=== PATIENT | female | born 1975 | race African-American/Black ===

== ENCOUNTER 2016-10-18 13:23 | Outpatient (CLI) ==
[2016-09-09 09:57] VITALS: BMI 40.7
[2016-10-18 15:30] LABS: BASOPHILS # (AUTO) 0.1 K/uL (0-0.2); BASOPHILS % (AUTO) 0.8 % (0.0-3.0); EOSINOPHILS # (AUTO) 0.2 K/ul (0.0-0.7); EOSINOPHILS % (AUTO) 2.4 % (0.0-7.0); HEMATOCRIT 40.1 % (37.0-47.0); HEMOGLOBIN 12.5 g/dl (12.0-16.0); IMMATURE GRANULOCYTE % (AUTO) 0.3 % (0.0-5.0); LYMPHOCYTES # (AUTO) 2.8 K/uL (0.60-3.4); LYMPHOCYTES % (AUTO) 37.3 (10.0-50.0); MEAN CORPUSCULAR HEMOGLOBIN 25.4 pg (27.0-31.0); MEAN CORPUSCULAR HGB CONC 31.2 (31.8-35.4); MEAN CORPUSCULAR VOLUME 81.5 fl (81.0-99.0); MONOCYTES # (AUTO) 0.6 K/uL (0.4-2.0); MONOCYTES % (AUTO) 7.7 (0-10); NEUTROPHILS # (AUTO) 3.9 K/ul (2.0-6.9); NEUTROPHILS % (AUTO) 51.5; PLATELET COUNT 346 10^3/uL (140-440); RED BLOOD COUNT 4.92 10^6/ul (4.20-5.40); WHITE BLOOD COUNT 7.57 K/ul (4.6-10.2)
[2016-10-18 15:52] LABS: ALBUMIN 3.5 g/dL (3.4-5.0); ALBUMIN/GLOBULIN RATIO 0.97; BILIRUBIN,TOTAL 0.33 mg/dL (0.00-1.20); BUN/CREATININE RATIO 8.33; CALCIUM 9.4 mg/dL (8.2-10.2); CHOL/HDL RATIO 3.2 (4.5-5.5); CREATININE 0.84 mg/dL (0.60-1.30); TOTAL PROTEIN 7.1 g/dL (6.4-8.2)
== END 2016-10-18 13:24 | disposition home or self-care (01) ==
LOC: LAB 13:23
PROVIDERS: ATTEND Nurse Practitioner Family
DX: E78.5 Hyperlipidemia, unspecified (principal); I10 Essential (primary) hypertension
CPT/HCPCS: 36415; 80053; 80061; 85025

== ENCOUNTER 2017-01-17 14:40 | Outpatient (CLI) | payer OTHER ==
[2016-09-09 09:57] VITALS: BMI 40.7
[2017-01-17 14:49] LABS: BASOPHILS # (AUTO) 0.1 K/uL (0-0.2); BASOPHILS % (AUTO) 0.7 % (0.0-3.0); EOSINOPHILS # (AUTO) 0.2 K/ul (0.0-0.7); HEMATOCRIT 38.7 % (37.0-47.0); HEMOGLOBIN 12.5 g/dl (12.0-16.0); IMMATURE GRANULOCYTE % (AUTO) 0.1 % (0.0-5.0); LYMPHOCYTES # (AUTO) 2.5 K/uL (0.60-3.4); LYMPHOCYTES % (AUTO) 29.4 (10.0-50.0); MEAN CORPUSCULAR HEMOGLOBIN 25.8 pg (27.0-31.0); MEAN CORPUSCULAR HGB CONC 32.3 (31.8-35.4); MONOCYTES # (AUTO) 0.7 K/uL (0.4-2.0); MONOCYTES % (AUTO) 7.9 (0-10); NEUTROPHILS % (AUTO) 59.9; PLATELET COUNT 368 10^3/uL (140-440); RED BLOOD COUNT 4.84 10^6/ul (4.20-5.40); WHITE BLOOD COUNT 8.43 K/ul (4.6-10.2)
[2017-01-17 15:12] LABS: ALBUMIN 3.6 g/dL (3.4-5.0); ALBUMIN/GLOBULIN RATIO 0.88; BILIRUBIN,TOTAL 0.27 mg/dL (0.00-1.20); BUN/CREATININE RATIO 16.09; CALCIUM 9.6 mg/dL (8.2-10.2); CHOL/HDL RATIO 2.7 (4.5-5.5); CREATININE 0.87 mg/dL (0.60-1.30); TOTAL PROTEIN 7.7 g/dL (6.4-8.2)
== END 2017-01-17 14:41 | disposition home or self-care (01) ==
LOC: LAB 14:40
PROVIDERS: ATTEND Nurse Practitioner Family
DX: E11.9 Type 2 diabetes mellitus without complications (principal); I10 Essential (primary) hypertension; E78.5 Hyperlipidemia, unspecified; Z72.0 Tobacco use
CPT/HCPCS: 36415; 80053; 80061; 83036; 85025

== ENCOUNTER 2017-01-20 09:44 | Outpatient (CLI) | payer OTHER ==
[2016-09-09 09:57] VITALS: BMI 40.7
--- NOTE | 2017-01-20 13:17 | CT ---
EXAM: CT Abdomen without contrast. CT Pelvis without contrast. HISTORY: Mid abdominal pain. Abdominal distension. Diarrhea. COMPARISON: 08/19/2016. TECHNIQUE: Multiple axial images of the abdomen and pelvis were obtained without intravenous contra st. Images were reformatted in the coronal plane. FINDINGS: Please note that evaluation of the abdominal and pelvic structures is limited due to lack of intravenous contrast. No acute abnormality identified in the lung bases. Degenerative changes present in the spine and sa croiliac joint. The liver, gallbladder, pancreas, spleen, adrenal glands, and kidneys demonstrate normal contour. The bowel is normal in course and caliber without evidence for obstruction or inflammatory process. The appendix is normal. Uterus demonstrates normal contour. Urinary bladder is unremarkable. No free fluid or free air identified. IMPRESSION: No acute abnormality of the abdomen or pelvis.
== END 2017-01-20 09:45 | disposition home or self-care (01) ==
LOC: RAD 09:44
PROVIDERS: ATTEND Nurse Practitioner Family
DX: R10.84 Generalized abdominal pain (principal); R10.817 Generalized abdominal tenderness; R19.7 Diarrhea, unspecified

== ENCOUNTER 2017-02-20 12:52 | Outpatient (CLI) | payer OTHER ==
[2016-09-09 09:57] VITALS: BMI 40.7
--- NOTE | 2017-02-21 09:22 | MAMMO ---
EXAM: Bilateral digital screening mammogram History: Baseline screening Findings: MLO and CC views of bilateral breasts demonstrate predominately fatty replaced breast par enchyma. There is a 1.5 cm well circumscribed nodule at 9 o'clock within the right breast posterior depth. No suspicious microcalcifications. Impression: Indeterminate 9 o'clock right breast nodule. Recommend further evaluation with spot co mpression views and ultrasound. BIRADS 0
== END 2017-02-20 12:53 | disposition home or self-care (01) ==
LOC: RAD 12:52
PROVIDERS: ATTEND Nurse Practitioner Family
DX: Z12.31 Encounter for screening mammogram for malignant neoplasm of breast (principal)

== ENCOUNTER 2017-02-24 08:37 | Outpatient (CLI) ==
[2016-09-09 09:57] VITALS: BMI 40.7
--- NOTE | 2017-02-24 09:22 | MAMMO ---
EXAM: Right diagnostic mammogram History: Right breast mass. Comparison: Bilateral mammogram 02/20/2017 Findings: Right breast density is fatty. Additional views of the right breast confirm the 9 o'clock right breast mass. No suspicious microcalcifications. Impression: Indeterminate 9 o'clock right breast mass. Recommend further evaluation with ultrasoun d. BIRADS 0
--- NOTE | 2017-02-24 09:46 | US ---
EXAM: Right breast ultrasound. History: Right breast mass. Comparison: Right-sided mammogram 02/24/2017 Technique: Multiple sonographic images through the right breast were obtained. Color duplex Dopple r was used to interrogate vascular flow. Findings: No masses, cysts or fluid collections identified. Impression: Although no sonographic abnormalities are identified, recommend 6-month follow-up right mammogram to document stability of the probably benign mammographic breast nodule. BIRADS 3
== END 2017-02-24 08:38 | disposition home or self-care (01) ==
LOC: RAD 08:37
PROVIDERS: ATTEND Nurse Practitioner Family
DX: N63 Unspecified lump in breast (principal)

== ENCOUNTER 2017-04-21 12:37 | Outpatient (CLI) ==
[2016-09-09 09:57] VITALS: BMI 40.7
[2017-04-21 13:04] LABS: ALBUMIN 3.4 g/dL (3.4-5.0); ALBUMIN/GLOBULIN RATIO 0.89; ANION GAP 14.9; BILIRUBIN,TOTAL 0.47 mg/dL (0.00-1.20); POTASSIUM 3.9 mmol/L (3.5-5.10); TOTAL PROTEIN 7.2 g/dL (6.4-8.2)
[2017-04-21 13:05] LABS: BUN/CREATININE RATIO 10.11; CHOL/HDL RATIO 2.8 (4.5-5.5); CREATININE 0.89 mg/dL (0.60-1.30)
== END 2017-04-21 12:38 | disposition home or self-care (01) ==
LOC: LAB 12:37
PROVIDERS: ATTEND Nurse Practitioner Family
DX: E11.9 Type 2 diabetes mellitus without complications (principal); I10 Essential (primary) hypertension; E78.5 Hyperlipidemia, unspecified
CPT/HCPCS: 36415; 80053; 80061; 83036

== ENCOUNTER 2017-06-27 07:55 | Outpatient (CLI) ==
[2016-09-09 09:57] VITALS: BMI 40.7
--- NOTE | 2017-06-28 06:07 | MRI ---
EXAM: Lumbar spine MRI without contrast. HISTORY: Chronic low back pain. COMPARISON: CT abdomen and pelvis 01/20/2017. TECHNIQUE: Multiplanar, multisequence MR images were acquired of the lumbar spine without contrast FINDINGS: Five non-rib bearing lumbar vertebra are present. There is minor thoracolumbar dextroscol iosis centered at L1-2. The lumbar vertebra are normal in height. Intrinsic bone marrow signal is h eterogeneous and small areas of bright T1 signal fatty infiltration are present along a few of the en dplates. Bridging ventral and lateral osteophytes are present in the lower thoracic and lumbar spine raising the possibility of a noninfectious inflammatory arthritis. Disc desiccation and minor disc space narrowing is present at L3-4 and L4-5. At L5-S1, there is osteophytosis with moderate disc spa ce narrowing, heterogeneous disc signal, endplate irregularity and moderately extensive reactive hiral ow changes along the endplates. Conus medullaris ends at L1-2 and has normal signal intensity. Canal diameter is developmentally narrow. The liver, spleen and kidneys are unremarkable. There are no paravertebral masses. There is osteoar throsis of both sacroiliac joints. T12-L1: The intervertebral disc is normal. L1-2: The intervertebral disc is normal. L2-3: The intervertebral disc is normal. There is mild bilateral hypertrophic facet arthropathy and ligamentum flavum hypertrophy, greater on the right. There is no central canal stenosis or foramina l stenosis. L3-4: There is a mild disc bulge and a small central disc extrusion that minimally effaces the ventr al thecal sac and mild bilateral hypertrophic facet arthropathy and ligamentum flavum hypertrophy. T his causes minor bilateral foraminal stenosis. There is no central canal stenosis. L4-5: There is a minor spondylotic ridge that is asymmetric to the left which effaces the left later al recess and medial left neural foramen. Mild bilateral hypertrophic facet arthropathy and ligament um flavum hypertrophy is present, greater on the left and there is mild left lateral recess stenosis and minor left foraminal stenosis. There is no central canal stenosis. L5-S1: There is a minor diffuse disc osteophyte complex which contacts the anterior S1 nerves bilate rally and may encroach on both L5 nerves exiting the neural foramina. Mild bilateral facet arthropat hy and ligamentum flavum hypertrophy is present. There is mild to moderate left neural foraminal cj nosis. IMPRESSION: 1. Mild lumbar degenerative spondylosis with bridging ventral and lateral osteophytes. The appearan ce raises the possibility of an inflammatory spondyloarthropathy. Clinical considerations include di ffuse idiopathic skeletal hyperostosis and ankylosing spondylitis. 2. Small central disc extrusion L3-4. 3. Bilateral sacroiliac osteoarthrosis. Pelvic MRI could better define the anatomy.
== END 2017-06-27 07:56 | disposition home or self-care (01) ==
LOC: RAD 07:55
PROVIDERS: ATTEND Nurse Practitioner Family
DX: M54.5 Low back pain (principal); G89.29 Other chronic pain; M54.10 Radiculopathy, site unspecified

== ENCOUNTER 2017-07-08 10:36 | Emergency (ER) ==
[2017-07-08 10:42] VITALS: BP 120/80; TEMP 98.1; BMI 38.7
== END 2017-07-08 11:30 | disposition left against medical advice (07) ==
LOC: ED 10:36
DX: H57.9 Unspecified disorder of eye and adnexa (principal); F17.210 Nicotine dependence, cigarettes, uncomplicated

== ENCOUNTER 2017-10-08 13:41 | Outpatient (CLI) ==
[2017-08-04 16:13] VITALS: BMI 38.7
== END 2017-10-08 13:42 | disposition home or self-care (01) ==
LOC: LAB 13:41
PROVIDERS: ATTEND Nurse Practitioner Family
DX: E11.9 Type 2 diabetes mellitus without complications (principal); E78.5 Hyperlipidemia, unspecified; I10 Essential (primary) hypertension; Z72.0 Tobacco use
CPT/HCPCS: 36415; 80053; 80061; 83036; 84443; 85025

== ENCOUNTER 2017-11-10 09:42 | Outpatient (CLI) ==
[2017-08-04 16:13] VITALS: BMI 38.7
--- NOTE | 2017-11-10 10:37 | US ---
Exam: Sprague-scale and color Doppler ultrasonographic evaluation in the left posterior calf above the ankle. Reason for exam: Localize swelling, mass, lump. Comparison: None available. The findings: Sprague scale and color Doppler ultrasonographic evaluation overlying the area of patient concern in the left posterior distal calf above the ankle. No discrete nodularity or abnormal vascularity is seen in the soft tissues. No suspicious appearing soft tissue lesions. No discrete fluid collection. Impression: Unremarkable ultrasonographic evaluation overlying the area of patient concern. If clinical concern exists, further evaluation may be performed.
== END 2017-11-10 09:43 | disposition home or self-care (01) ==
LOC: RAD 09:42
PROVIDERS: ATTEND Nurse Practitioner Family
DX: R22.42 Localized swelling, mass and lump, left lower limb (principal)
CPT/HCPCS: 76882

== ENCOUNTER 2018-02-05 13:50 | Outpatient (CLI) | payer OTHER ==
[2017-08-04 16:13] VITALS: BMI 38.7
--- NOTE | 2018-02-06 08:34 | MAMMO ---
EXAM: Bilateral digital screening mammogram (2-D and 3-D) History: Screening Comparison: Right diagnostic mammogram 02/24/2017, no lateral mammogram 02/20/2017 Findings: MLO and CC views of bilateral breasts demonstrate scattered fibroglandular breast parenchy ma. CAD was reviewed by the radiologist. Tomosynthesis was performed. Stable benign intramammary l ymph node within the right breast. There are no developing masses, no suspicious microcalcifications and no architectural distortions Impression: Benign stable mammogram. Recommend followup routine screening mammography in 1 year. BIRADS 2
== END 2018-02-05 13:51 | disposition home or self-care (01) ==
LOC: RAD 13:50
PROVIDERS: ATTEND Obstetrics & Gynecology
DX: Z12.31 Encounter for screening mammogram for malignant neoplasm of breast (principal)
CPT/HCPCS: 77067

== ENCOUNTER 2018-04-16 11:07 | Outpatient (CLI) | payer OTHER ==
[2017-08-04 16:13] VITALS: BMI 38.7
== END 2018-04-16 11:08 | disposition home or self-care (01) ==
LOC: LAB 11:07
PROVIDERS: ATTEND Nurse Practitioner Family
DX: E11.9 Type 2 diabetes mellitus without complications (principal); I10 Essential (primary) hypertension; E78.5 Hyperlipidemia, unspecified; Z72.0 Tobacco use
CPT/HCPCS: 36415; 80053; 80061; 83036; 85025

== ENCOUNTER 2018-07-24 12:54 | Outpatient (CLI) | payer OTHER ==
[2017-08-04 16:13] VITALS: BMI 38.7
== END 2018-07-24 12:55 | disposition home or self-care (01) ==
LOC: LAB 12:54
PROVIDERS: ATTEND Nurse Practitioner Family
DX: E11.9 Type 2 diabetes mellitus without complications (principal); E78.5 Hyperlipidemia, unspecified; I10 Essential (primary) hypertension
CPT/HCPCS: 36415; 80053; 80061; 83036

== ENCOUNTER 2019-02-16 11:49 | Outpatient (CLI) | payer OTHER ==
[2017-08-04 16:13] VITALS: BMI 38.7
== END 2019-02-16 11:50 | disposition home or self-care (01) ==
LOC: LAB 11:49
PROVIDERS: ATTEND Nurse Practitioner Family
DX: E11.9 Type 2 diabetes mellitus without complications (principal); I10 Essential (primary) hypertension; E78.5 Hyperlipidemia, unspecified
CPT/HCPCS: 36415; 80053; 80061; 83036; 84443; 85025